=== PATIENT | male | born 1960 | race Caucasian/White ===

== ENCOUNTER 2018-02-27 19:52 | Emergency (ER) | payer BC, OTHER ==
--- NOTE | 2018-02-27 20:48 | EDM.PDOC ---
ED HPI GENERAL MEDICAL PROBLEM - General Chief Complaint: Lower Extremity Injury/Pain Stated Complaint: Right knee and ankle pain; Fall Time Seen by Provider: 02/27/18 19:55 Source of Information: Reports: Patient, Family, RN, RN Notes Reviewed History Limitations: Reports: No Limitations - History of Present Illness INITIAL COMMENTS - FREE TEXT/NARRATIVE: Patient presents to the ED at [facility] complaining of right knee pain and right ankle pain. Patient states he slipped and fell off of a cultivator. Patient states he was jumping off the cultivator when he lost his balance and fell, landing on his right knee. He thinks he may have had an inverted injury to the right ankle. Patient denies any previous injury or trauma to the knee or ankle. No previous surgeries. Patient is able to bare weight but it is painful. He complains of swelling above the right knee. Onset: Today Onset Date: 02/27/18 Right Leg Pain Score (Numeric/FACES): 7 - Related Data Allergies Allergy/AdvReac Type Severity Reaction Status Date / Time No Known Allergies Allergy Verified 02/27/18 20:34 Home Meds: Home Meds . [No Known Home Meds] 02/27/18 [History] Social & Family History - Tobacco Use Smoking Status *Q: Never Smoker - Recreational Drug Use Recreational Drug Use: No Review of Systems - Review of Systems Review Of Systems: See Below Constitutional: Denies: Chills, Fever Respiratory: Denies: Shortness of Breath, Cough Cardiovascular: Denies: Chest Pain, Palpitations Musculoskeletal: Reports: Leg Pain, Joint Pain, Muscle Pain, Muscle Stiffness, Other (right knee pain) Skin: Reports: No Symptoms Neurological: Reports: No Symptoms. Denies: Numbness, Paresthesia, Tingling ED EXAM, GENERAL - Physical Exam Exam: See Below Exam Limited By: No Limitations General Appearance: Alert, No Apparent Distress Head: Atraumatic, Normocephalic Respiratory/Chest: No Respiratory Distress, Lungs Clear, Normal Breath Sounds Cardiovascular: Normal Peripheral Pulses, Regular Rate, Rhythm Peripheral Pulses: 2+: Radial (L), Radial (R) GI/Abdominal: Normal Bowel Sounds, Soft, Non-Tender Extremities: Normal Capillary Refill, Leg Pain, Limited Range of Motion, Other ( localized swelling lateral right lower thigh; ankle stable, no joint laxity; no obvious bone deformity). No: Joint Swelling Skin Exam: Warm, Dry, Intact, Normal Color Course - Vital Signs Last Recorded V/S: Last Vital Signs Temp 37.1 C 02/27/18 20:32 Pulse 86 02/27/18 20:32 Resp 16 02/27/18 20:32 BP 135/98 H 02/27/18 20:32 Pulse Ox 97 02/27/18 20:32 - Orders/Labs/Meds Orders: Active Orders 24 hr Category Date Time Status Ankle Min 3V Rt [CR] Stat Exams 02/27/18 20:43 Taken Knee 3V Rt [CR] Stat Exams 02/27/18 20:43 Taken DME for Discharge [COMM] Routine Oth 02/27/18 21:39 Ordered - Radiology Interpretation Free Text/Narrative:: Right Ankle, 3V: No acute fracture or dislocation Knee, Right, 3V: No acute fracture See scanned reports in EMR Departure - Departure Time of Disposition: 21:41 Disposition: Home, Self-Care 01 Condition: Good Clinical Impression: Right knee sprain Qualifiers: Encounter type: initial encounter Involved ligament of knee: unspecified ligament Qualified Code(s): S83.91XA - Sprain of unspecified site of right knee , initial encounter Right ankle sprain Qualifiers: Encounter type: initial encounter Involved ligament of ankle: unspecified ligament Qualified Code(s): S93.401A - Sprain of unspecified ligament of right ankle, initial encounter - Discharge Information *PRESCRIPTION DRUG MONITORING PROGRAM REVIEWED*: Not Applicable *COPY OF PRESCRIPTION DRUG MONITORING REPORT IN PATIENT [place]: Not Applicable Instructions: Ankle Sprain, Knee Sprain, Adult Referrals: Brad Duque MD [Primary Care Provider] - Forms: ED Department Discharge Additional Instructions: 1. Stay well hydrated and rest 2. Rest, elevate, and ice several times a day 3. Take Advil/tylenol as needed 4. See your Primary this week - Problem List Review Problem List Initiated/Reviewed/Updated: Yes - My Orders Last 24 Hours: My Active Orders 02/27/18 20:43 Ankle Min 3V Rt [CR] Stat Knee 3V Rt [CR] Stat 02/27/18 21:39 DME for Discharge [COMM] Routine - Assessment/Plan Last 24 Hours: My Active Orders 02/27/18 20:43 Ankle Min 3V Rt [CR] Stat Knee 3V Rt [CR] Stat 02/27/18 21:39 DME for Discharge [COMM] Routine Assessment:: Right Knee Sprain Right ankle sprain Plan: Xrays discussed with patient. Will put an MINA wrap on right knee for compression /swelling. RICE. Take advil/tylenol as needed. See PCP as symptoms warrant
== END 2018-02-27 21:50 | disposition home or self-care (01) ==
LOC: VM.ED 19:52
DX: S83.91XA Sprain of unspecified site of right knee, initial encounter (principal); S93.401A Sprain of unspecified ligament of right ankle, initial encounter; W17.89XA Other fall from one level to another, initial encounter
CPT/HCPCS: 73562-RT; 73610-RT; 99283